=== PATIENT | female | born 1995 | race Two or more races ===

== ENCOUNTER 2016-08-26 21:30 | Emergency (ER) | payer OTHER ==
[~2016-08-26] VITALS: Ht 172.7 cm; Wt 61.2 kg
[2016-08-26] MEDS ORDERED: NKM (21:37)
--- NOTE | 2016-08-26 21:51 | Emergency Room Report ---
History of Present Illness General Chief Complaint: Abdominal Pain Source: Patient Present Illness HPI Is a 21-year-old female with no past medical history. She presents with chief complaint of lower abdominal cramps. Onset for about a week. Denies any fever or chills. Has nausea and vomiting today. No diarrhea. No loose stool. Does have some increased urination. She has not had her menstrual period this month. Pain is 5/10. No other complaint. No vaginal bleeding. Allergies: Uncoded Allergies: CATS (Allergy, Unknown, 08/26/16) DOGS (Allergy, Unknown, 08/26/16) Patient History Past Medical History: see triage record, old chart reviewed Past Surgical History: none Pertinent Family History: none Social History: Denies: smoking Last Menstrual Period: unk Now: No : 0 Para: 0 Immunizations: other Reviewed Nursing Documentation: PMH: Agreed, PSxH: Agreed Nursing Documentation-PM Past Medical History: No Stated History Review of Systems Eye: Denies: blurred vision, eye pain ENT: Denies: ear pain, nose congestion, throat swelling Respiratory: Denies: cough, shortness of breath Cardiovascular: Denies: chest pain, palpitations Gastrointestinal: Reports: abdominal pain, Denies: diarrhea, nausea, vomiting Musculoskeletal: Denies: back pain, joint pain Skin: Denies: rash Neurological: Denies: headache, numbness Endocrine: Denies: increased thirst, increased urine Hematologic/Lymphatic: Denies: easy bruising All Other Systems: negative except mentioned in HPI Physical Exam Vital Signs Date Time Temp Pulse Resp B/P Pulse Ox O2 Delivery O2 Flow Rate FiO2 08/26/16 21:32 98.4 61 16 94/54 99 vitals unremarkable Sp02 EP Interpretation: reviewed, normal General Appearance: well appearing, no apparent distress, alert Head: normocephalic, atraumatic Eyes: bilateral eye EOMI, bilateral eye PERRL ENT: hearing grossly normal, normal pharynx Neck: full range of motion, supple, no meningismus Respiratory: chest non-tender, lungs clear, normal breath sounds Cardiovascular #1: regular rate, rhythm, no murmur Gastrointestinal: normal bowel sounds, non tender, no mass, no organomegaly, no bruit, non-distended Musculoskeletal: back normal, gait/station normal, normal range of motion Psychiatric: mood/affect normal Skin: warm/dry Medical Decision Making Diagnostic Impression: Primary Impression: Threatened in first trimester Additional Impression: UTI (urinary tract infection) Qualified Codes: N30.00 - Acute cystitis without hematuria ER Course She present with pelvic pain. She is 6 and half weeks . No ectopic. No evidence of PID or torsion. She does have a urinary tract infection. We'll discharge home. Lab Results Impression labs unremarkable CT/MRI/US Diagnostic Results CT/MRI/US Diagnostic Results : Imaging Test Ordered: Pelvic ultrasound Impression read by child welfare counselor. IUP with good heartbeat. 6 and half weeks Last Vital Signs Date Time Temp Pulse Resp B/P Pulse Ox O2 Delivery O2 Flow Rate FiO2 08/26/16 21:32 98.4 61 16 94/54 99 Status: improved Disposition: HOME, SELF-CARE Condition: Stable Scripts Nitrofurantoin Monohyd/M-Cryst (Nitrofurantoin [place]-Mcr 100 mg) 100 Mg Capsule 100 MG ORAL Q12H, #14 CAP Prov: NORBERTO BECKWITH M.D. 08/27/16 Additional Instructions: Followup with your DrAbdirahman in 7 days. Return if worse. NORBERTO BECKWITH M.D. August 26, 2016 21:51
[2016-08-26 22:28] LABS: APPEARANCE,URINE SLIGHTLY CLOUDY; KETONES,URINE NEGATIVE (NEGATIVE); LEUKOCYTE ESTERASE ,URINE 3+ (NEGATIVE); NITRITE,URINE NEGATIVE (NEGATIVE); PH,URINE 6 (4.5-8.0); PROTEIN,URINE 2+ (NEGATIVE); UROBILINOGEN,URINE NORMAL MG/DL (0.0-1.0)
[2016-08-26 22:45] VITALS: BP 106/66
[2016-08-26 22:51] LABS: BACTERIA,URINE FEW /HPF; SQUAMOUS EPITHELIAL CELL,UR FEW /LPF (NONE/OCC)
[2016-08-26 22:52] LABS: AMORPHOUS SEDIMENT,UR FEW /LPF
[2016-08-26] MEDS ORDERED: cefTRIAXone 1 GM in NS 55 ML IVPB ONE (23:00)
[2016-08-26 23:21] LABS: EOSINOPHILS % (AUTO) 1.1 % (0.0-3.0); LYMPHOCYTES % (AUTO) 30.6 % (20.0-45.0); MEAN CORPUSCULAR HEMOGLOBIN 30.2 PG (27.0-31.0); MEAN CORPUSCULAR HGB CONC 34.4 G/DL (32.0-36.0); MEAN CORPUSCULAR VOLUME 88 FL (80-99); MEAN PLATELET VOLUME 8.6 FL (6.5-10.1); MONOCYTES % (AUTO) 7.5 % (1.0-10.0); NEUTROPHILS % (AUTO) 59.8 % (45.0-75.0); PLATELET COUNT 245 K/UL (150-450); RED BLOOD COUNT 4.12 M/UL (4.20-5.40); RED CELL DISTRIBUTION WIDTH 11.6 % (11.6-14.8); WHITE BLOOD COUNT 9.5 K/UL (4.8-10.8)
[2016-08-26 23:30] LABS: ANION GAP 17 (5-15); CALCIUM 9.2 mg/dL (8.6-10.2); CARBON DIOXIDE 23 mEQ/L (20-30); CHLORIDE 97 mEQ/L (98-107); CREATININE 0.7 mg/dL (0.5-0.9); GLOMERULAR FILTRATION RATE > 60 mL/min (>60); HEMOLYSIS 3; POTASSIUM 3.8 mEQ/L (3.4-4.9); SODIUM 137 mEQ/L (135-145)
[2016-08-27 01:00] VITALS: BP 106/53
[2016-08-27] MEDS ORDERED: MACROBID100 MG ORAL (02:14)
[2016-08-27 02:33] VITALS: BP 104/61
[2016-08-27 02:35] VITALS: BP 104/61
== END 2016-08-27 02:35 | disposition home or self-care (01) ==
LOC: EMR 21:54
DX: O20.0 Threatened abortion (principal); Z3A.01 Less than 8 weeks gestation of pregnancy; O23.41 Unspecified infection of urinary tract in pregnancy, first trimester
CPT/HCPCS: 36415; 76801; 76830; 80048; 81003; 81025; 84702; 85025; 96374; 99284; J0696

== ENCOUNTER 2016-12-02 11:30 | Emergency (ER) | payer OTHER ==
[~2016-12-02] VITALS: Ht 172.7 cm; Wt 58.5 kg
[~2016-12-02 11:30] MED LIST: MACROBID100 MG ORAL; NKM
[2016-12-02 12:12] VITALS: BP 108/60
[2016-12-02 12:54] LABS: APPEARANCE,URINE VERY CLOUDY; KETONES,URINE NEGATIVE (NEGATIVE); LEUKOCYTE ESTERASE ,URINE 3+ (NEGATIVE); NITRITE,URINE NEGATIVE (NEGATIVE); PH,URINE 5 (4.5-8.0); PROTEIN,URINE 3+ (NEGATIVE); UROBILINOGEN,URINE NORMAL MG/DL (0.0-1.0)
[2016-12-02 13:06] LABS: BACTERIA,URINE MANY /HPF; SQUAMOUS EPITHELIAL CELL,UR MODERATE /LPF (NONE/OCC); WBC,URINE 30-40 /HPF (0 - 2)
[2016-12-02 13:07] LABS: MUCUS,URINE MODERATE /LPF (NONE/OCC)
[2016-12-02] MEDS ORDERED: KEFLEX500 MG ORAL (13:14)
[2016-12-02] MEDS ORDERED: METRONIDAZOLE500 MG ORAL (13:14)
[2016-12-02] MEDS ORDERED: Lidocaine 1% MPF 10mg/ml 5ml ONE (13:25)
[2016-12-02] MEDS ORDERED: Lidocaine 1% MPF 10mg/ml 5ml IM ONE (13:30)
[2016-12-02 14:00] VITALS: BP 112/55
--- NOTE | 2016-12-05 20:15 | Emergency Room Report ---
History of Present Illness General Chief Complaint: Vaginal Source: Patient Present Illness HPI Patient is a 21-year-old female presented after increased watery discharge for the past 3 days. She reported being sexually active. She denies being . She had not been vomiting. Discharge is watery and green in color. She reported having this persistently. She denies any fever. Allergies: Uncoded Allergies: CATS (Allergy, Unknown, 08/26/16) DOGS (Allergy, Unknown, 08/26/16) Patient History Past Medical History: see triage record Last Menstrual Period: 11/18/18 Reviewed Nursing Documentation: PMH: Agreed, PSxH: Agreed Nursing Documentation-PMH Past Medical History: No Stated History Review of Systems All Other Systems: negative except mentioned in HPI Physical Exam Vital Signs Date Time Temp Pulse Resp B/P (MAP) Pulse Ox O2 Delivery O2 Flow Rate FiO2 12/02/16 11:40 98.8 63 14 114/67 100 Room Air Sp02 EP Interpretation: reviewed, normal General Appearance: normal inspection, well appearing, no apparent distress, alert, GCS 15, non-toxic Head: atraumatic ENT: normal ENT inspection, hearing grossly normal, normal voice Neck: normal inspection, full range of motion, supple, no bony tend Respiratory: normal inspection, lungs clear, normal breath sounds, no respiratory distress, no retraction, no wheezing Cardiovascular #1: regular rate, rhythm, no edema Gastrointestinal: normal inspection, normal bowel sounds, non tender, soft, no guarding, no hernia Genitourinary: no CVA tenderness Musculoskeletal: normal inspection, back normal, normal range of motion Neurologic: normal inspection, alert, oriented x3, responsive, industrial engineering technician III-XII nml as tested, speech normal Psychiatric: normal inspection, judgement/insight normal, mood/affect normal Skin: normal inspection, normal color, no rash Medical Decision Making Diagnostic Impression: Primary Impression: Urinary tract infection Additional Impression: Vaginal discharge ER Course The patient presented for vaginal discharge. Differential diagnosis included was not limited to a yeast infection, physiologic discharge, bacterial vaginosis , gonorrhea, Chlamydia, among others. Urine test was negative. The patient did have evidence of urinary tract infection. She was given empiric treatment for sexually transmitted diseases. The patient was advised outpatient STD testing. The patient is advised to follow up with primary care doctor in 1-2 days. Patient is advised to return if any worsening condition or if any changes in status that are concerning. Labs Test 12/02/16 11:45 Urine Color Yellow Urine Appearance Very cloudy Urine pH 5 (4.5-8.0) Urine Specific [place] 1.025 (1.005-1.035) Urine Protein 3+ (NEGATIVE) Urine Glucose (UA) Negative (NEGATIVE) Urine Ketones Negative (NEGATIVE) Urine Occult Blood 2+ (NEGATIVE) Urine Nitrite Negative (NEGATIVE) Urine Bilirubin Negative (NEGATIVE) Urine Urobilinogen Normal MG/DL (0.0-1.0) Urine Leukocyte Esterase 3+ (NEGATIVE) Urine RBC 5-10 /HPF (0 - 2) Urine WBC 30-40 /HPF (0 - 2) Urine Squamous Epithelial Cells Moderate /LPF (NONE/OCC) Urine Bacteria Many /HPF (NONE) Urine Mucus Moderate /LPF (NONE/OCC) Urine HCG, Qualitative Negative Last Vital Signs Date Time Temp Pulse Resp B/P (MAP) Pulse Ox O2 Delivery O2 Flow Rate FiO2 12/02/16 14:00 57 14 112/55 100 Room Air 12/02/16 12:12 99.6 Status: improved Disposition: HOME, SELF-CARE Condition: Stable Scripts Cephalexin* (KEFLEX*) 500 Mg Capsule 500 MG ORAL Q6H, #28 CAP 0 Refills Prov: Ken Marina 12/02/16 Metronidazole* (FLAGYL*) 500 Mg Tablet 2000 MG ORAL ONCE, #4 TAB Prov: Ken Marina 12/02/16 Patient Instructions: Urinary Tract Infection Ken Marina Dec 05, 2016 20:15
== END 2016-12-02 14:05 | disposition home or self-care (01) ==
LOC: EMR 12:38
DX: N39.0 Urinary tract infection, site not specified (principal); N89.8 Other specified noninflammatory disorders of vagina; Z91.09 Other allergy status, other than to drugs and biological substances
CPT/HCPCS: 81003; 81025; 87086; 96372; 99284; J0696

== ENCOUNTER 2017-02-17 16:25 | Emergency (ER) | payer OTHER ==
[~2017-02-17] VITALS: Ht 175.3 cm; Wt 55.8 kg
[~2017-02-17 16:25] MED LIST changes: +KEFLEX500 MG ORAL; +METRONIDAZOLE500 MG ORAL
--- NOTE | 2017-02-17 17:11 | Emergency Room Report ---
History of Present Illness General Chief Complaint: Female Urogenital Problems Source: Patient Present Illness HPI Patient's 21 O2 who presents today with complaints of urinary frequency, urgency and dysuria. She states she's been going to bathroom more frequently and has mild dysuria intermittently. She states the pain is 7/10 in severity and she hasn't taken medication for her. Patient also states she is "prone to UTIs" from wearing panty liners daily to "stay fresh". She denies any hematuria , abdominal pain, fever, chills or associated symptoms. Allergies: Uncoded Allergies: CATS (Allergy, Unknown, 08/26/16) DOGS (Allergy, Unknown, 08/26/16) Patient History Last Menstrual Period: 01/17/17 Now: No : 1 Para: 0 Reviewed Nursing Documentation: PMH: Agreed, PSxH: Agreed Nursing Documentation-PMH Past Medical History: No Stated History Review of Systems Genitourinary: Reports: dysuria All Other Systems: negative except mentioned in HPI Physical Exam Vital Signs Date Time Temp Pulse Resp B/P (MAP) Pulse Ox O2 Delivery O2 Flow Rate FiO2 02/17/17 16:41 98.4 66 18 109/69 99 Room Air Sp02 EP Interpretation: reviewed, normal General Appearance: no apparent distress, alert, GCS 15, non-toxic Head: normocephalic, atraumatic Eyes: bilateral eye normal inspection, bilateral eye PERRL ENT: hearing grossly normal, normal pharynx, no angioedema, normal voice Neck: full range of motion, supple/symm/no masses Respiratory: chest non-tender, lungs clear, normal breath sounds, speaking full sentences Cardiovascular #1: regular rate, rhythm, no edema Cardiovascular #2: 2+ carotid (R), 2+ carotid (L), 2+ radial (R), 2+ radial (L) , 2+ dorsalis pedis (R), 2+ dorsalis pedis (L) Gastrointestinal: normal bowel sounds, non tender, soft, non-distended, no guarding, no rebound Rectal: deferred Genitourinary: normal inspection, no CVA tenderness, adnexa normal, cervix normal, ext genitalia/vag normal, os closed Musculoskeletal: back normal, gait/station normal, normal range of motion, non- tender, calf tenderness Neurologic: alert, oriented x3, responsive, motor strength/tone normal, sensory intact, speech normal Psychiatric: judgement/insight normal, memory normal, mood/affect normal, no suicidal/homicidal ideation Reflexes: 3+ bicep (R), 3+ bicep (L), 3+ tricep (R), 3+ tricep (L), 3+ knee (R) , 3+ knee (L) Skin: normal color, no rash, warm/dry, well hydrated Lymphatic: no adenopathy Medical Decision Making PA Attestation Supervising physician Dr. Balbuena Diagnostic Impression: Primary Impression: Acute cystitis ER Course Patient found to have a UTI on UA. No evidence of pyelonephritis. exam is normal. Vision is discharged to home with Keflex and instructed to followup with PCP for reevaluation. Last Vital Signs Date Time Temp Pulse Resp B/P (MAP) Pulse Ox O2 Delivery O2 Flow Rate FiO2 02/17/17 16:41 98.4 66 18 109/69 99 Room Air Status: improved Disposition: HOME, SELF-CARE Condition: Stable Scripts Cephalexin* (KEFLEX*) 500 Mg Capsule 500 MG ORAL EVERY 12 HOURS, #14 CAP 0 Refills Prov: Solange Navarro 02/17/17 Referrals: [facility],REFERR[facility] (PCP) Patient Instructions: Urinary Tract Infection Solange Navarro Feb 17, 2017 17:11
[2017-02-17 17:30] LABS: APPEARANCE,URINE SLIGHTLY CLOUDY; KETONES,URINE NEGATIVE (NEGATIVE); LEUKOCYTE ESTERASE ,URINE 3+ (NEGATIVE); NITRITE,URINE NEGATIVE (NEGATIVE); PH,URINE 5 (4.5-8.0); PROTEIN,URINE 2+ (NEGATIVE); UROBILINOGEN,URINE NORMAL MG/DL (0.0-1.0)
[2017-02-17 17:33] LABS: ICTOTEST POSITIVE
[2017-02-17 17:38] LABS: BACTERIA,URINE MODERATE /HPF; MUCUS,URINE MODERATE /LPF (NONE/OCC); SQUAMOUS EPITHELIAL CELL,UR MODERATE /LPF (NONE/OCC); WBC,URINE 15-20 /HPF (0 - 2)
[2017-02-17] MEDS ORDERED: CEPHALEXIN500 MG ORAL (17:58)
[2017-02-17 18:30] VITALS: BP 109/69
[2017-02-17 18:31] VITALS: BP 109/69
== END 2017-02-17 18:32 | disposition home or self-care (01) ==
LOC: EMR 17:04
DX: N30.00 Acute cystitis without hematuria (principal)
CPT/HCPCS: 81001; 81025; 87086; 99283

== ENCOUNTER 2019-03-07 22:47 | Emergency (ER) | payer MEDICAID, OTHER ==
[~2019-03-07] VITALS: Ht 175.3 cm; Wt 54.4 kg
[~2019-03-07 22:47] MED LIST changes: +CEPHALEXIN500 MG ORAL
[2019-03-07 23:03] VITALS: BP 109/67
[2019-03-07 23:32] LABS: APPEARANCE,URINE CLEAR; BILIRUBIN, URINE NEGATIVE (NEGATIVE); COLOR,URINE PALE YELLOW; GLUCOSE, URINE (UA) NEGATIVE (NEGATIVE); KETONES,URINE NEGATIVE (NEGATIVE); LEUKOCYTE ESTERASE ,URINE NEGATIVE (NEGATIVE); NITRITE,URINE NEGATIVE (NEGATIVE); PH,URINE 7 (4.5-8.0); PROTEIN,URINE NEGATIVE (NEGATIVE); UROBILINOGEN,URINE 1 MG/DL (0.0-1.0)
[2019-03-07 23:59] LABS: BASOPHILS % (AUTO) 0.6 % (0.0-2.0); EOSINOPHILS % (AUTO) 0.9 % (0.0-3.0); HEMOGLOBIN 11.6 G/DL (12.0-16.0); LYMPHOCYTES % (AUTO) 23.8 % (20.0-45.0); MEAN CORPUSCULAR VOLUME 83 FL (80-99); MONOCYTES % (AUTO) 6.6 % (1.0-10.0); PLATELET COUNT 237 K/UL (150-450); RED BLOOD COUNT 3.84 M/UL (4.20-5.40); RED CELL DISTRIBUTION WIDTH 9.9 % (11.6-14.8); WHITE BLOOD COUNT 7.2 K/UL (4.8-10.8)
[2019-03-08 00:09] LABS: ANION GAP 7 mmol/L (5-15); BLOOD UREA NITROGEN 8 mg/dL (7-18); CARBON DIOXIDE 28 MMOL/L (21-32); CHLORIDE 105 MMOL/L (98-107); CREATININE 0.6 MG/DL (0.55-1.30); POTASSIUM 3.3 MMOL/L (3.5-5.1); SODIUM 140 MMOL/L (136-145)
[2019-03-08 00:13] LABS: ALANINE AMINOTRANSFERASE 14 U/L (12-78); ALBUMIN 3.5 G/DL (3.4-5.0); ALKALINE PHOSPHATASE 45 U/L (46-116); ASPARTATE AMINO TRANSFERASE 12 U/L (15-37); BILIRUBIN,TOTAL 0.3 MG/DL (0.2-1.0)
--- NOTE | 2019-03-08 00:51 | Diagnostic Imaging Report ---
Indication: Pelvic pain, positive test Technique: Transabdominal and transvaginal images of the pelvis Comparison: none Findings: Uterus measures 7.4 cm length by 4.2 cm AP. Within the endometrium, there is a gestational sac. This demonstrates a yolk sac. No definite pole or heart activity. The gestational sac has a mean diameter of 13 mm, corresponding to enhancement gestational age of 4 weeks 4 days. A sub-5 mm hypoechoic area seen adjacent to the gestational sac, could represent a tiny subchorionic hemorrhage. No myometrial abnormality. Left ovary measures 3.5 cm length. Left ovary measures 2.4 cm length. Both ovaries demonstrate normal flow on Doppler interrogation. Impression: 4 week 4 day, by mean sac diameter, intrauterine gestational sac. No heart activity demonstrated. Most likely, this is due to very early stage of . However, nonviable also a possibility, and correlation with serial beta-hCGs is recommended Possible tiny subchorionic hemorrhage. This agrees with the preliminary interpretation provided overnight by [facility].
[2019-03-08] MEDS ORDERED: TYLENOL EXTRA500 MG ORAL (01:02)
[2019-03-08 01:10] VITALS: BP 111/74
--- NOTE | 2019-03-08 04:38 | Emergency Room Report ---
History of Present Illness General Chief Complaint: Abdominal Pain Source: Patient Present Illness HPI 23-year-old female presents ED for evaluation. Complaining of abdominal pain. Lower abdomen. Sharp, 7 out of 10, nonradiating. Denies dysuria or hematuria. Denies fevers or chills. Denies vaginal bleeding. Denies discharge. No other aggravating relieving factors. Denies any other associated symptoms Allergies: Uncoded Allergies: CATS (Allergy, Unknown, 08/26/16) DOGS (Allergy, Unknown, 08/26/16) Patient History Past Medical History: none Past Surgical History: none Pertinent Family History: none Social History: Denies: smoking, alcohol use, drug use Last Menstrual Period: 02/16/19 Now: No : 1 Para: 0 Reviewed Nursing Documentation: PMH: Agreed; PSxH: Agreed Nursing Documentation-PMH Past Medical History: No Stated History Review of Systems All Other Systems: negative except mentioned in HPI Physical Exam Vital Signs Date Time Temp Pulse Resp B/P (MAP) Pulse Ox O2 Delivery O2 Flow Rate FiO2 03/07/19 22:56 98.1 69 18 109/67 (81) 94 Room Air Sp02 EP Interpretation: reviewed, normal General Appearance: no apparent distress, alert, GCS 15, non-toxic Head: normocephalic, atraumatic Eyes: bilateral eye normal inspection, bilateral eye PERRL ENT: hearing grossly normal, normal pharynx, no angioedema, normal voice Neck: full range of motion, supple/symm/no masses Respiratory: chest non-tender, lungs clear, normal breath sounds, speaking full sentences Cardiovascular #1: regular rate, rhythm, no edema Cardiovascular #2: 2+ carotid (R), 2+ carotid (L), 2+ radial (R), 2+ radial (L) , 2+ dorsalis pedis (R), 2+ dorsalis pedis (L) Gastrointestinal: normal bowel sounds, soft, non-distended, no guarding, no rebound, tenderness - suprapubic Rectal: deferred Genitourinary: normal inspection, no CVA tenderness Musculoskeletal: back normal, normal range of motion, gait/station normal, non- tender Neurologic: alert, motor strength/tone normal, oriented x3, sensory intact, responsive, speech normal Psychiatric: judgement/insight normal, memory normal, mood/affect normal, no suicidal/homicidal ideation Reflexes: 3+ bicep (R), 3+ bicep (L), 3+ tricep (R), 3+ tricep (L), 3+ knee (R) , 3+ knee (L) Skin: no rash Lymphatic: no adenopathy Medical Decision Making Diagnostic Impression: Primary Impression: Threatened miscarriage ER Course Hospital Course 23-year-old female presents to ED complaining of lower abdominal pain Differential diagnoses include: gastrits, gastroenterits, ectopic , ovarian torsion/cyst, UTI Clinical course Patient placed on stretcher in ED. After initial history and physical I ordered UA UA negative, + Patient was not aware she was . I will order labs, ultrasound Labs-no leukocytosis, electrolytes okay, beta hCG > [id number] OB US - gestational sac, no pole, approximately 4 weeks She describes some spotting during ultrasound. Discussed findings with patient. Consideration for threatened miscarriage. Recommends serial labs and repeat ultrasounds. I will provide [employer] referrals Diagnosis - threatened miscarraige Stable and discharged to home with Rx tylenol. Followup with PMD/[employer] CL[employer]. Return to ED if symptoms recur or worsen Labs Test 03/07/19 23:19 03/07/19 23:47 Urine Color Pale yellow Urine Appearance Clear Urine pH 7 (4.5-8.0) Urine Specific [place] 1.005 (1.005-1.035) Urine Protein Negative (NEGATIVE) Urine Glucose (UA) Negative (NEGATIVE) Urine Ketones Negative (NEGATIVE) Urine Blood Negative (NEGATIVE) Urine Nitrite Negative (NEGATIVE) Urine Bilirubin Negative (NEGATIVE) Urine Urobilinogen 1 MG/DL (0.0-1.0) Urine Leukocyte Esterase Negative (NEGATIVE) Urine HCG, Qualitative Positive (NEGATIVE) White Blood Count 7.2 K/UL (4.8-10.8) Red Blood Count 3.84 M/UL (4.20-5.40) Hemoglobin 11.6 G/DL (12.0-16.0) Hematocrit 32.0 % (37.0-47.0) Mean Corpuscular Volume 83 FL (80-99) Mean Corpuscular Hemoglobin 30.2 PG (27.0-31.0) Mean Corpuscular Hemoglobin Concent 36.2 G/DL (32.0-36.0) Red Cell Distribution Width 9.9 % (11.6-14.8) Platelet Count 237 K/UL (150-450) Mean Platelet Volume 8.0 FL (6.5-10.1) Neutrophils (%) (Auto) 68.0 % (45.0-75.0) Lymphocytes (%) (Auto) 23.8 % (20.0-45.0) Monocytes (%) (Auto) 6.6 % (1.0-10.0) Eosinophils (%) (Auto) 0.9 % (0.0-3.0) Basophils (%) (Auto) 0.6 % (0.0-2.0) Sodium Level 140 MMOL/L (136-145) Potassium Level 3.3 MMOL/L (3.5-5.1) Chloride Level 105 MMOL/L (98-107) Carbon Dioxide Level 28 MMOL/L (21-32) Anion Gap 7 mmol/L (5-15) Blood Urea Nitrogen 8 mg/dL (7-18) Creatinine 0.6 MG/DL (0.55-1.30) Estimat Glomerular Filtration Rate > 60 mL/min (>60) Glucose Level 84 MG/DL (74-106) Calcium Level 9.0 MG/DL (8.5-10.1) Total Bilirubin 0.3 MG/DL (0.2-1.0) Aspartate Amino Transf (AST/SGOT) 12 U/L (15-37) Alanine Aminotransferase (ALT/SGPT) 14 U/L (12-78) Alkaline Phosphatase 45 U/L (46-116) Total Protein 6.9 G/DL (6.4-8.2) Albumin 3.5 G/DL (3.4-5.0) Globulin 3.4 g/dL Albumin/Globulin Ratio 1.0 (1.0-2.7) Lipase 141 U/L (73-393) Human Chorionic Gonadotropin, Quant 14135 mIU/mL (1-6) CT/MRI/US Diagnostic Results CT/MRI/US Diagnostic Results : Imaging Test Ordered: OB US Impression US OB 1st TRIMESTER: Gestational sac measuring 12.8 mm responding to a gestational age of 4 weeks and 4 days. Yolk sac is seen. No pole at this time. Small hypoechoic area is seen adjacent to the gestational sac, possibly a small subchorionic hemorrhage which is less than 25% of the circumference of the gestational sac. Ovaries are unremarkable. Last Vital Signs Date Time Temp Pulse Resp B/P (MAP) Pulse Ox O2 Delivery O2 Flow Rate FiO2 03/08/19 01:10 98.5 70 19 111/74 98 Room Air Status: improved Disposition: HOME, SELF-CARE Condition: Stable Scripts Acetaminophen* (TYLENOL EXTRA STRENGTH*) 500 Mg Tablet 500 MG ORAL Q8H PRN for Prn Headache/Temp > 101, #30 TAB 0 Refills Prov: Turner Magana MD 03/08/19 [facility]: [facility] Patient Instructions: Threatened Miscarriage Turner Magana MD Mar 08, 2019 04:38
== END 2019-03-08 01:10 | disposition home or self-care (01) ==
LOC: EMR 23:20
DX: O20.0 Threatened abortion (principal); Z3A.01 Less than 8 weeks gestation of pregnancy
CPT/HCPCS: 36415; 76801; 76830; 80053; 81003; 81025; 83690; 84702; 85025; Z7502; 99284

== ENCOUNTER 2019-03-14 21:27 | Emergency (ER) | payer MEDICAID ==
[~2019-03-14] VITALS: Ht 175.3 cm; Wt 54.4 kg
[~2019-03-14 21:27] MED LIST changes: +TYLENOL EXTRA500 MG ORAL
--- NOTE | 2019-03-14 23:31 | NUR ---
ED Nurse Note: pt came to ED w/ complaints of vaginal discharge brownish color for past two wks, lower abd pain and burning pain when pt urinates. pt states she is four wks . pt denies active bleeding at this time. blood and urine specimen obtained, vss. significant other at the bedside will cont monitor.
[2019-03-14 23:39] LABS: BILIRUBIN, URINE NEGATIVE (NEGATIVE); GLUCOSE, URINE (UA) NEGATIVE (NEGATIVE); KETONES,URINE NEGATIVE (NEGATIVE); LEUKOCYTE ESTERASE ,URINE 3+ (NEGATIVE); NITRITE,URINE NEGATIVE (NEGATIVE); PH,URINE 7 (4.5-8.0); PROTEIN,URINE 2+ (NEGATIVE); UROBILINOGEN,URINE 4 MG/DL (0.0-1.0)
[2019-03-14 23:40] LABS: BASOPHILS % (AUTO) 0.9 % (0.0-2.0); EOSINOPHILS % (AUTO) 1.3 % (0.0-3.0); HEMATOCRIT 36.7 % (37.0-47.0); HEMOGLOBIN 12.5 G/DL (12.0-16.0); LYMPHOCYTES % (AUTO) 22.5 % (20.0-45.0); MEAN CORPUSCULAR VOLUME 88 FL (80-99); MONOCYTES % (AUTO) 5.8 % (1.0-10.0); NEUTROPHILS % (AUTO) 69.4 % (45.0-75.0); PLATELET COUNT 258 K/UL (150-450); RED BLOOD COUNT 4.16 M/UL (4.20-5.40); RED CELL DISTRIBUTION WIDTH 10.8 % (11.6-14.8); WHITE BLOOD COUNT 9.7 K/UL (4.8-10.8)
[2019-03-14 23:50] LABS: ANION GAP 7 mmol/L (5-15); BLOOD UREA NITROGEN 9 mg/dL (7-18); CARBON DIOXIDE 26 MMOL/L (21-32); CHLORIDE 103 MMOL/L (98-107); CREATININE 0.7 MG/DL (0.55-1.30); POTASSIUM 3.8 MMOL/L (3.5-5.1); SODIUM 136 MMOL/L (136-145)
[2019-03-14 23:54] LABS: ALANINE AMINOTRANSFERASE 16 U/L (12-78); ALBUMIN 4.1 G/DL (3.4-5.0); ALBUMIN/GLOBULIN RATIO 1.1 (1.0-2.7); ALKALINE PHOSPHATASE 52 U/L (46-116); ASPARTATE AMINO TRANSFERASE 14 U/L (15-37); BILIRUBIN,TOTAL 0.3 MG/DL (0.2-1.0)
[2019-03-14 23:56] LABS: APPEARANCE,URINE SLIGHTLY CLOUDY; COLOR,URINE YELLOW
--- NOTE | 2019-03-15 00:03 | Diagnostic Imaging Report ---
Indication: Abdominal pelvic pain during Technique: Transabdominal and transvaginal images of the pelvis Comparison: 03/07/2019 Findings: An intrauterine gestational sac is identified. A yolk sac is identified. A pole is identified with a crown-rump length of approximately 7.8 mL. Cardiac motion is demonstrated on cine clips. A small subchorionic hemorrhage is noted, not measured by the medical technologist chief. The left ovary contains a heterogeneous lesion which measures approximately 2.8 cm. This contains a small nodule. Color and Doppler flow to the left ovary is visualized. The left ovary is not identified on transabdominal or endovaginal scanning. Free pelvic fluid demonstrated. Impression: * Single living intrauterine with gestational age by ultrasound of approximately 6 weeks. heart rate 144 bpm. Cardiac motion detected on cine clips. Obstetric follow-up recommended. * Small subchorionic hemorrhage. Attention on short-term interval follow-up recommended. * 3 cm complex appearing lesion in the left ovary which may represent a involuting cyst or hemorrhagic cyst. This contains a possible nodule. Follow-up is advised to ensure resolution. Color and Doppler flow visualized in the left ovary. * Right ovary not visualized. * No free pelvic fluid demonstrated This agrees with the preliminary interpretation provided overnight by [facility].
[2019-03-15] MEDS ORDERED: cefTRIAXone 1 GM in NS 55 ML IVPB ONE (00:30)
[2019-03-15] MEDS ORDERED: CEPHALEXIN500 M1 ORAL (01:12)
--- NOTE | 2019-03-15 01:12 | Emergency Room Report ---
History of Present Illness General Chief Complaint: Complications Source: Patient Present Illness HPI 23-year-old female presents with chronic abdominal pain ever since she found out she was , presents with dysuria x1 day no aggravating relieving factors severity is mild, no vaginal discharge no vaginal bleeding, patient is a G2 A1, patient presents for evaluation, she states she has not had a chance to follow-up with an [employer] [facility], she was denied Allergies: Uncoded Allergies: CATS (Allergy, Unknown, 08/26/16) DOGS (Allergy, Unknown, 08/26/16) Patient History Past Medical History: see triage record Now: Yes Reviewed Nursing Documentation: PMH: Agreed; PSxH: Agreed Nursing Documentation-PMH Past Medical History: No Stated History Review of Systems All Other Systems: negative except mentioned in HPI Physical Exam Vital Signs Date Time Temp Pulse Resp B/P (MAP) Pulse Ox O2 Delivery O2 Flow Rate FiO2 03/14/19 21:59 98.2 65 20 103/60 (74) 100 Room Air Sp02 EP Interpretation: reviewed, normal General Appearance: well appearing, no apparent distress, alert Head: normocephalic, atraumatic Eyes: bilateral eye PERRL, bilateral eye EOMI ENT: uvula midline, moist mucus membranes Neck: supple, thyroid normal, supple/symm/no masses Respiratory: lungs clear, no respiratory distress, no retraction, no accessory muscle use Cardiovascular #1: normal peripheral pulses, regular rate, rhythm, no edema, no gallop, no murmur Gastrointestinal: non tender, soft, no guarding, no rebound Musculoskeletal: normal inspection Neurologic: alert, oriented x3 Psychiatric: mood/affect normal Skin: no rash, warm/dry Medical Decision Making Diagnostic Impression: Primary Impression: Subchorionic hemorrhage in first trimester Qualified Codes: O41.8X10 - Other specified disorders of amniotic fluid and membranes, first trimester, not applicable or unspecified; O46.8X1 - Other antepartum hemorrhage, first trimester Additional Impression: UTI (urinary tract infection) Qualified Codes: N30.00 - Acute cystitis without hematuria ER Course 23-year-old female G2 A1 presents with crampy abdominal pain and dysuria x1 day , differential diagnosis includes started miscarriage, subchorionic hemorrhage, UTI Ultrasound shows subchorionic hemorrhage still present, patient also with a UTI We will treat patient for UTI, ceftriaxone 1 g given, counseled patient pelvic rest until she follows up with an [employer] [facility] Disposition home with return precautions Laboratory Tests Test 03/14/19 23:15 White Blood Count 9.7 K/UL (4.8-10.8) Red Blood Count 4.16 M/UL (4.20-5.40) L Hemoglobin 12.5 G/DL (12.0-16.0) Hematocrit 36.7 % (37.0-47.0) L Mean Corpuscular Volume 88 FL (80-99) Mean Corpuscular Hemoglobin 29.9 PG (27.0-31.0) Mean Corpuscular Hemoglobin Concent 33.9 G/DL (32.0-36.0) Red Cell Distribution Width 10.8 % (11.6-14.8) L Platelet Count 258 K/UL (150-450) Mean Platelet Volume 8.3 FL (6.5-10.1) Neutrophils (%) (Auto) 69.4 % (45.0-75.0) Lymphocytes (%) (Auto) 22.5 % (20.0-45.0) Monocytes (%) (Auto) 5.8 % (1.0-10.0) Eosinophils (%) (Auto) 1.3 % (0.0-3.0) Basophils (%) (Auto) 0.9 % (0.0-2.0) Urine Color Yellow Urine Appearance Slightly cloudy Urine pH 7 (4.5-8.0) Urine Specific [place] 1.015 (1.005-1.035) Urine Protein 2+ (NEGATIVE) H Urine Glucose (UA) Negative (NEGATIVE) Urine Ketones Negative (NEGATIVE) Urine Blood 2+ (NEGATIVE) H Urine Nitrite Negative (NEGATIVE) Urine Bilirubin Negative (NEGATIVE) Urine Urobilinogen 4 MG/DL (0.0-1.0) H Urine Leukocyte Esterase 3+ (NEGATIVE) H Urine RBC 2-4 /HPF (0 - 2) H Urine WBC 10-15 /HPF (0 - 2) H Urine Squamous Epithelial Cells Many /LPF (NONE/OCC) H Urine Bacteria Moderate /HPF (NONE) H Sodium Level 136 MMOL/L (136-145) Potassium Level 3.8 MMOL/L (3.5-5.1) Chloride Level 103 MMOL/L (98-107) Carbon Dioxide Level 26 MMOL/L (21-32) Anion Gap 7 mmol/L (5-15) Blood Urea Nitrogen 9 mg/dL (7-18) Creatinine 0.7 MG/DL (0.55-1.30) Estimate Glomerular Filtration Rate > 60 mL/min (>60) Glucose Level 87 MG/DL (74-106) Calcium Level 9.0 MG/DL (8.5-10.1) Total Bilirubin 0.3 MG/DL (0.2-1.0) Aspartate Amino Transferase (AST) 14 U/L (15-37) L Alanine Aminotransferase (ALT) 16 U/L (12-78) Alkaline Phosphatase 52 U/L (46-116) Total Protein 7.8 G/DL (6.4-8.2) Albumin 4.1 G/DL (3.4-5.0) Globulin 3.7 g/dL Albumin/Globulin Ratio 1.1 (1.0-2.7) Lipase 133 U/L (73-393) Human Chorionic Gonadotropin, Quant 587366 mIU/mL (1-6) H CT/MRI/US Diagnostic Results CT/MRI/US Diagnostic Results : Impression Procedure: US OB 1st Trimester US PELVIS: Intrauterine gestational sac with a embryo and a crown-rump length corresponding to an estimated gestational age of 6 weeks and 5 days. Embryonic heart rate is 144 bpm. There is a 3.0 cm slightly complex- appearing presumed follicle/cyst in the left ovary containing a possible nodule. Follow-up advised to ensure resolution. Nonvisualization left ovary. There is a small subchorionic hemorrhage not measured by the technologist. Close follow-up advised. Dictated By: Theodore Hicks DO Electronically Signed By: Signed Date/Time CC: Last Vital Signs Date Time Temp Pulse Resp B/P (MAP) Pulse Ox O2 Delivery O2 Flow Rate FiO2 03/14/19 21:59 98.2 65 20 103/60 (74) 100 Room Air Disposition: HOME, SELF-CARE Condition: Stable Scripts Cephalexin* (KEFLEX*) 500 Mg Tablet 500 MG ORAL EVERY 6 HOURS, #20 CAP Prov: Shamir Kraft MD 03/15/19 Referrals: NON PHYSICIAN (PCP) [facility] Patient Instructions: Subchorionic Hematoma, Threatened Miscarriage, Easy-to- Read, Urinary Tract Infection, [id number] Additional Instructions: The patient was provided with discharge instructions, notified to follow-up with a primary care doctor and or specialist in the next 24-48 hours, and to return to the ED if they have worsening of their symptoms. Please note that this report is being documented using DRAGON technology. This can lead to erroneous entry secondary to incorrect interpretation by the dictating instrument. PELVIC REST NO HEAVY LIFTING, NO SEX PLEASE FOLLOW-UP WITH OBGYN PETTY YOU HAVE A SUBCHORIONIC HEMORRHAGE VERY MILD, HOWEVER NEEDS TO BE FOLLOWED-UP Shamir Kraft MD Mar 15, 2019 01:12
[2019-03-15 01:45] VITALS: BP 103/60
== END 2019-03-15 01:45 | disposition home or self-care (01) ==
LOC: EMR 21:55
DX: O41.8X10 Other specified disorders of amniotic fluid and membranes, first trimester, not applicable or unspecified (principal); N30.00 Acute cystitis without hematuria; Z3A.01 Less than 8 weeks gestation of pregnancy
CPT/HCPCS: 36415; 76801; 76830; 80053; 81003; 83690; 84702; 85025; 86850; 86900; 86901; 87086; 96365; J0696; Z7502; 99284

== ENCOUNTER 2019-05-04 01:00 | Emergency (ER) | payer MEDICAID ==
[~2019-05-04] VITALS: Ht 172.7 cm; Wt 53.5 kg
[~2019-05-04 01:00] MED LIST changes: +CEPHALEXIN500 M1 ORAL
[2019-05-04 01:36] VITALS: BP 120/67
[2019-05-04 01:36] LABS: APPEARANCE,URINE CLEAR; BILIRUBIN, URINE NEGATIVE (NEGATIVE); COLOR,URINE PALE YELLOW; GLUCOSE, URINE (UA) NEGATIVE (NEGATIVE); KETONES,URINE NEGATIVE (NEGATIVE); LEUKOCYTE ESTERASE ,URINE 1+ (NEGATIVE); NITRITE,URINE NEGATIVE (NEGATIVE); PH,URINE 7 (4.5-8.0); PROTEIN,URINE NEGATIVE (NEGATIVE); UROBILINOGEN,URINE NORMAL MG/DL (0.0-1.0)
--- NOTE | 2019-05-04 01:47 | Emergency Room Report ---
History of Present Illness General Chief Complaint: Vaginal Source: Patient Present Illness HPI Patient presents after passing some tissue tonight. She now has some darker blood. She was having vaginal bleeding in February. She does not recall if she passed tissue at that time. She was seen every week in March until mid March getting blood samples to make sure the levels were going down and also apparently had an ultrasound performed mid-March. She was not sexually active she says until last night. She has been off of her control since February. Does not know her blood type. Patient denies any pain, fever, nausea, vomiting or diarrhea. She also denies dysuria. No sore throat, chest pain, palpitations, abdominal pain, shortness of breath, joint pain, rashes, depression, anxiety, visual changes, dizziness, headache. Allergies: Uncoded Allergies: CATS (Allergy, Unknown, 08/26/16) DOGS (Allergy, Unknown, 08/26/16) Patient History Past Medical History: see triage record Social History: Denies: smoking Social History Narrative With significant other Last Menstrual Period: jan 14 Now: No : 2 Para: 0 Reviewed Nursing Documentation: PMH: Agreed; PSxH: Agreed Nursing Documentation-PMH Past Medical History: No Stated History Review of Systems All Other Systems: negative except mentioned in HPI Physical Exam Vital Signs Date Time Temp Pulse Resp B/P (MAP) Pulse Ox O2 Delivery O2 Flow Rate FiO2 05/04/19 01:10 98.4 69 18 120/67 (84) 95 Room Air Sp02 EP Interpretation: reviewed, normal General Appearance: well appearing, no apparent distress, GCS 15 Head: normocephalic Eyes: bilateral eye normal inspection, bilateral eye PERRL, bilateral eye EOMI ENT: moist mucus membranes Neck: supple Respiratory: lungs clear, normal breath sounds Cardiovascular #1: regular rate, rhythm Cardiovascular #2: 2+ radial (R) Gastrointestinal: normal inspection, normal bowel sounds, non tender, no mass, non-distended Genitourinary: no CVA tenderness, deferred - Based on clinical history Musculoskeletal: back normal, normal range of motion, gait/station normal Neurologic: alert, oriented x3, normal inspection Psychiatric: mood/affect normal Skin: no rash, warm/dry Medical Decision Making Diagnostic Impression: Primary Impression: Complete miscarriage ER Course Patient presents for evaluation after passing tissue. Differential includes complete , incomplete miscarriage, uterine abnormality amongst others. Evaluation with labs. The patient is not bleeding heavily at this time and has no pain. Ultrasound is not indicated at this time. Labs significant for quant of 3. Discussed findings with patient. Discussed treatment plan with patient. Patient stable for outpatient observation and treatment. Laboratory Tests Test 05/04/19 01:30 05/04/19 01:35 Urine Color Pale yellow Urine Appearance Clear Urine pH 7 (4.5-8.0) Urine Specific [place] 1.010 (1.005-1.035) Urine Protein Negative (NEGATIVE) Urine Glucose (UA) Negative (NEGATIVE) Urine Ketones Negative (NEGATIVE) Urine Blood 3+ (NEGATIVE) H Urine Nitrite Negative (NEGATIVE) Urine Bilirubin Negative (NEGATIVE) Urine Urobilinogen Normal MG/DL (0.0-1.0) Urine Leukocyte Esterase 1+ (NEGATIVE) H Urine RBC 5-10 /HPF (0 - 2) H Urine WBC 10-15 /HPF (0 - 2) H Urine Squamous Epithelial Cells Many /LPF (NONE/OCC) H Urine Bacteria Few /HPF (NONE) Urine HCG, Qualitative Negative (NEGATIVE) White Blood Count 6.8 K/UL (4.8-10.8) Red Blood Count 3.68 M/UL (4.20-5.40) L Hemoglobin 11.1 G/DL (12.0-16.0) L Hematocrit 32.5 % (37.0-47.0) L Mean Corpuscular Volume 88 FL (80-99) Mean Corpuscular Hemoglobin 30.2 PG (27.0-31.0) Mean Corpuscular Hemoglobin Concent 34.2 G/DL (32.0-36.0) Red Cell Distribution Width 11.5 % (11.6-14.8) L Platelet Count 265 K/UL (150-450) Mean Platelet Volume 7.5 FL (6.5-10.1) Neutrophils (%) (Auto) 59.8 % (45.0-75.0) Lymphocytes (%) (Auto) 29.4 % (20.0-45.0) Monocytes (%) (Auto) 7.7 % (1.0-10.0) Eosinophils (%) (Auto) 2.0 % (0.0-3.0) Basophils (%) (Auto) 1.1 % (0.0-2.0) Sodium Level 142 MMOL/L (136-145) Potassium Level 3.7 MMOL/L (3.5-5.1) Chloride Level 106 MMOL/L (98-107) Carbon Dioxide Level 31 MMOL/L (21-32) Anion Gap 6 mmol/L (5-15) Blood Urea Nitrogen 8 mg/dL (7-18) Creatinine 0.7 MG/DL (0.55-1.30) Estimate Glomerular Filtration Rate > 60 mL/min (>60) Glucose Level 92 MG/DL (74-106) Calcium Level 8.4 MG/DL (8.5-10.1) L Total Bilirubin 0.2 MG/DL (0.2-1.0) Aspartate Amino Transferase (AST) 35 U/L (15-37) Alanine Aminotransferase (ALT) 54 U/L (12-78) Alkaline Phosphatase 55 U/L (46-116) Total Protein 7.1 G/DL (6.4-8.2) Albumin 3.6 G/DL (3.4-5.0) Globulin 3.5 g/dL Albumin/Globulin Ratio 1.0 (1.0-2.7) Human Chorionic Gonadotropin, Quant 3 mIU/mL (1-6) Last Vital Signs Date Time Temp Pulse Resp B/P (MAP) Pulse Ox O2 Delivery O2 Flow Rate FiO2 05/04/19 03:15 98.4 18 120/67 95 Room Air 05/04/19 01:10 69 Status: improved Disposition: HOME, SELF-CARE Condition: Improved Referrals: [facility],REFERRING (PCP) Conrad Kinney MD May 04, 2019 01:47
[2019-05-04 02:03] LABS: BASOPHILS % (AUTO) 1.1 % (0.0-2.0); HEMATOCRIT 32.5 % (37.0-47.0); HEMOGLOBIN 11.1 G/DL (12.0-16.0); LYMPHOCYTES % (AUTO) 29.4 % (20.0-45.0); MEAN CORPUSCULAR VOLUME 88 FL (80-99); MONOCYTES % (AUTO) 7.7 % (1.0-10.0); NEUTROPHILS % (AUTO) 59.8 % (45.0-75.0); PLATELET COUNT 265 K/UL (150-450); RED BLOOD COUNT 3.68 M/UL (4.20-5.40); RED CELL DISTRIBUTION WIDTH 11.5 % (11.6-14.8); WHITE BLOOD COUNT 6.8 K/UL (4.8-10.8)
[2019-05-04 02:14] LABS: ANION GAP 6 mmol/L (5-15); BLOOD UREA NITROGEN 8 mg/dL (7-18); CALCIUM 8.4 MG/DL (8.5-10.1); CARBON DIOXIDE 31 MMOL/L (21-32); CHLORIDE 106 MMOL/L (98-107); CREATININE 0.7 MG/DL (0.55-1.30); POTASSIUM 3.7 MMOL/L (3.5-5.1); SODIUM 142 MMOL/L (136-145)
[2019-05-04 02:18] LABS: ALANINE AMINOTRANSFERASE 54 U/L (12-78); ALBUMIN 3.6 G/DL (3.4-5.0); ALKALINE PHOSPHATASE 55 U/L (46-116); ASPARTATE AMINO TRANSFERASE 35 U/L (15-37); BILIRUBIN,TOTAL 0.2 MG/DL (0.2-1.0)
[2019-05-04 03:15] VITALS: BP 120/67
== END 2019-05-04 03:15 | disposition home or self-care (01) ==
LOC: EMR 01:33
DX: O03.9 Complete or unspecified spontaneous abortion without complication (principal); Z91.09 Other allergy status, other than to drugs and biological substances
CPT/HCPCS: 36415; 80053; 81003; 81025; 84702; 85025; 86850; 86900; 86901; 87086; Z7502; 99283

== ENCOUNTER 2019-12-13 00:42 | Emergency (ER) | payer MEDICAID ==
[~2019-12-13] VITALS: Ht 172.7 cm; Wt 54.4 kg
[~2019-12-13 00:42] MED LIST changes: +ROBAXIN-750750 MG PO; +TYLENOL325 MG ORAL
[2019-12-13] MEDS ORDERED: PRILOSEC OTC20 MG ORAL (01:15)
[2019-12-13] MEDS ORDERED: BENADRYL25 MG ORAL (01:15)
[2019-12-13] MEDS ORDERED: Clindamycin 150mg cap ORAL ONE (01:15)
[2019-12-13] MEDS ORDERED: CLINDAMYCIN HC300 MG ORAL (01:15)
[2019-12-13] MEDS ORDERED: Mylanta II UD 30ml ORAL ONE (01:15)
--- NOTE | 2019-12-13 01:16 | Emergency Room Report ---
History of Present Illness General Chief Complaint: Abdominal Pain Source: Patient Present Illness HPI This a 24-year-old female with no past medical history. She presents with 2 complaints. First complaint is abdominal pain. Pain is to the epigastric area. Is been going on for months. No radiation. Usually worse at night. Sometimes she wakes up with pain. No fever chills but no nausea no vomiting. No melena. No radiation of the pain. Her second complaint is rash. She has a rash on her body. Is itching. Is been ongoing for couple days. She has no pets but she is a people in her apartment have pets. Denies any alcohol or drug use. Itching made it worse. Has not anything for it. No fever chills. Allergies: Uncoded Allergies: CATS (Allergy, Unknown, 08/26/16) DOGS (Allergy, Unknown, 08/26/16) COVID-19 Screening Contact w/high risk pt: No Experienced COVID-19 symptoms?: No COVID-19 Testing performed FINANCIAL AID: No Patient History Past Medical History: see triage record, old chart reviewed Past Surgical History: none Pertinent Family History: none Social History: Denies: smoking Last Menstrual Period: 12/09/19 Now: No : 2 Para: 0 Immunizations: other Reviewed Nursing Documentation: PMH: Agreed; PSxH: Agreed Nursing Documentation-PMH Past Medical History: No Stated History Review of Systems Eye: Denies: eye pain, blurred vision ENT: Denies: ear pain, nose congestion, throat swelling Respiratory: Denies: cough, shortness of breath Cardiovascular: Denies: chest pain, palpitations Gastrointestinal: Reports: abdominal pain; Denies: diarrhea, nausea, vomiting Musculoskeletal: Denies: back pain, joint pain Skin: Reports: rash Neurological: Denies: headache, numbness Endocrine: Denies: increased thirst, increased urine Hematologic/Lymphatic: Denies: easy bruising All Other Systems: negative except mentioned in HPI Physical Exam Vital Signs Date Time Temp Pulse Resp B/P (MAP) Pulse Ox O2 Delivery O2 Flow Rate FiO2 12/13/19 00:51 98.1 63 17 105/68 (80) 98 Room Air Vitals normal Sp02 EP Interpretation: reviewed, normal General Appearance: well appearing, no apparent distress, alert Head: normocephalic, atraumatic Eyes: bilateral eye PERRL, bilateral eye EOMI ENT: hearing grossly normal, normal pharynx Neck: full range of motion, supple, no meningismus Respiratory: chest non-tender, lungs clear, normal breath sounds Cardiovascular #1: regular rate, rhythm, no murmur Gastrointestinal: normal bowel sounds, non tender, no mass, no organomegaly, no bruit, non-distended Musculoskeletal: back normal, normal range of motion, gait/station normal Psychiatric: mood/affect normal Skin: other - Patient with scatter 3 to 5 mm lesion. Some mild erythema. Medical Decision Making Diagnostic Impression: Primary Impression: Peptic ulcer disease Additional Impression: Cellulitis Qualified Codes: L03.90 - Cellulitis, unspecified ER Course Patient with epigastric pain. This most likely peptic ulcer disease. No evidence of right upper quadrant pain to indicate gallbladder disease. Patient initially requested a CT scan. I see no need for this. This is a chronic issue been going on for months. No evidence of acute abdomen obstruction. Rash is most likely secondary to flea or insect bites. There is a secondary cellulitic component. Will discharge home with antibiotics. Benadryl for itching. Last Vital Signs Date Time Temp Pulse Resp B/P (MAP) Pulse Ox O2 Delivery O2 Flow Rate FiO2 12/13/19 00:51 98.1 63 17 105/68 (80) 98 Room Air Status: improved Disposition: HOME, SELF-CARE Condition: Stable Scripts Diphenhydramine Hcl* (BENADRYL*) 25 Mg Capsule 25 MG ORAL Q6H PRN for Itching, #30 CAP Prov: Enrique Moseley MD 12/13/19 Clindamycin Hcl (CLINDAMYCIN HCL) 300 Mg Capsule 300 MG ORAL THREE TIMES A DAY, #21 CAP Prov: Enrique Moseley MD 12/13/19 Omeprazole Magnesium (PRILOSEC OTC) 20 Mg Tablet.dr 20 MG ORAL DAILY, #30 TAB Prov: Enrique Moseley MD 12/13/19 [facility],REFERR[facility] (PCP) Additional Instructions: Follow-up with your doctor in 7 days. If your stomach pain continued, you may need referral to see a GI doctor for endoscopy. Try not to scratch your skin. Return if symptoms worsen. Enrique Moseley MD Dec 13, 2019 01:15
[2019-12-13 01:26] VITALS: BP 124/87
== END 2019-12-13 01:30 | disposition home or self-care (01) ==
LOC: EMR 01:08
DX: K27.9 Peptic ulcer, site unspecified, unspecified as acute or chronic, without hemorrhage or perforation (principal); L03.90 Cellulitis, unspecified; Z91.048 Other nonmedicinal substance allergy status
CPT/HCPCS: 99282

== ENCOUNTER 2020-05-14 01:07 | Emergency (ER) | payer MEDICAID ==
[~2020-05-14] VITALS: Ht 172.7 cm; Wt 54.4 kg
[~2020-05-14 01:07] MED LIST changes: +BENADRYL25 MG ORAL; +CLINDAMYCIN HC300 MG ORAL; +PRILOSEC OTC20 MG ORAL
[2020-05-14 01:26] VITALS: BP 111/80
--- NOTE | 2020-05-14 01:26 | NUR ---
ED Nurse Note: Pt walked into ED from home c/o frequent urination and green in color onset 1 weeks ago. Denies pain or burning with urination. Pt has had unprotected sex, but denies possible exposure to STDs.
[2020-05-14 01:35] VITALS: BP 111/80
--- NOTE | 2020-05-14 01:36 | NUR ---
ED Nurse Note: urine sent to lab
[2020-05-14 01:41] LABS: APPEARANCE,URINE CLEAR; BILIRUBIN, URINE NEGATIVE (NEGATIVE); COLOR,URINE PALE YELLOW; GLUCOSE, URINE (UA) NEGATIVE (NEGATIVE); KETONES,URINE NEGATIVE (NEGATIVE); LEUKOCYTE ESTERASE ,URINE 2+ (NEGATIVE); NITRITE,URINE NEGATIVE (NEGATIVE); PH,URINE 5 (4.5-8.0); PROTEIN,URINE 1+ (NEGATIVE); UROBILINOGEN,URINE NORMAL MG/DL (0.0-1.0)
[2020-05-14] MEDS ORDERED: MACROBID100 MG ORAL (01:52)
--- NOTE | 2020-05-14 01:53 | Emergency Room Report ---
History of Present Illness General Chief Complaint: Female Urogenital Problems Source: Patient Present Illness HPI This patient presents with urinary complaint. Onset today. She has urinary frequency and urgency. No discharge no hematuria. No upper back pain. No nausea or vomiting. Worse with urination. Better with rest. Allergies: Uncoded Allergies: CATS (Allergy, Unknown, 08/26/16) DOGS (Allergy, Unknown, 08/26/16) COVID-19 Screening Contact w/high risk pt: No Experienced COVID-19 symptoms?: No COVID-19 Testing performed DESILVERIZER: No Patient History Past Medical History: see triage record, old chart reviewed Past Surgical History: none Pertinent Family History: none Social History: Denies: smoking Last Menstrual Period: March 2020 Now: No : 1 Para: 0 Immunizations: other Reviewed Nursing Documentation: PMH: Agreed; PSxH: Agreed Nursing Documentation-PMH Past Medical History: No Stated History Review of Systems Eye: Denies: eye pain, blurred vision ENT: Denies: ear pain, nose congestion, throat swelling Respiratory: Denies: cough, shortness of breath Cardiovascular: Denies: chest pain, palpitations Gastrointestinal: Denies: abdominal pain, diarrhea, nausea, vomiting Genitourinary: Reports: dysuria, frequency, urgency Musculoskeletal: Denies: back pain, joint pain Skin: Denies: rash Neurological: Denies: headache, numbness Endocrine: Denies: increased thirst, increased urine Hematologic/Lymphatic: Denies: easy bruising All Other Systems: negative except mentioned in HPI Physical Exam Vital Signs Date Time Temp Pulse Resp B/P (MAP) Pulse Ox O2 Delivery O2 Flow Rate FiO2 05/14/20 01:19 98.6 56 18 111/80 (90) 96 Room Air Vitals normal Sp02 EP Interpretation: reviewed, normal General Appearance: well appearing, no apparent distress, alert Head: normocephalic, atraumatic Eyes: bilateral eye PERRL, bilateral eye EOMI ENT: hearing grossly normal, normal pharynx Neck: full range of motion, supple, no meningismus Respiratory: chest non-tender, lungs clear, normal breath sounds Cardiovascular #1: regular rate, rhythm, no murmur Gastrointestinal: normal bowel sounds, non tender, no mass, no organomegaly, no bruit, non-distended Musculoskeletal: back normal, normal range of motion, gait/station normal Psychiatric: mood/affect normal Medical Decision Making Diagnostic Impression: Primary Impression: Urinary tract infection Qualified Codes: N30.00 - Acute cystitis without hematuria ER Course Patient presents with UTI symptoms. No evidence of ectopic or pyelonephritis. Discharged home. Last Vital Signs Date Time Temp Pulse Resp B/P (MAP) Pulse Ox O2 Delivery O2 Flow Rate FiO2 05/14/20 01:26 98.6 57 18 111/80 96 Room Air Status: improved Disposition: HOME, SELF-CARE Condition: Stable Scripts Nitrofurantoin Monohyd/M-Cryst (Nitrofurantoin [place]-Mcr 100 mg) 100 Mg Capsule 100 MG ORAL Q12H, #14 CAP Prov: Enrique Moseley MD 05/14/20 Patient Instructions: Urinary Tract Infection Additional Instructions: Follow-up with your doctor in 7 days. Return if symptoms worsen. Enrique Moseley MD May 14, 2020 01:53
[2020-05-14] MEDS ORDERED: Cephalexin 500mg cap ORAL ONE (02:00)
== END 2020-05-14 01:45 | disposition home or self-care (01) ==
LOC: EMR 01:45
DX: N30.00 Acute cystitis without hematuria (principal); Z91.09 Other allergy status, other than to drugs and biological substances
CPT/HCPCS: 81003; 81025; 87086; Z7502; 99283